=== PATIENT | female | born 1995 | race Caucasian/White ===

== ENCOUNTER 2023-08-07 03:36 | Observation (INO) | payer OTHER ==
[2023-08-07] MEDS ORDERED: ONDANSETRON 4 MG/2 ML VIAL ONE (03:52)
[2023-08-07] MEDS: ONDANSETRON 4 MG/2 ML VIAL IVPB ONE (04:06)
[2023-08-07] MEDS: SODIUM CHLORIDE 1,000 ML IV ONE ×2 (04:06→05:22)
[2023-08-07 04:19] VITALS: BMI 25.0
[2023-08-07] MEDS ORDERED: PANTOPRAZOLE SODIUM 40 MG VIAL ONE (04:30)
[2023-08-07] MEDS: PANTOPRAZOLE SODIUM 40 MG VIAL IVPB ONE (04:34)
[2023-08-07 05:41] LABS: HEMATOCRIT 43.5 % (32.4-45.2); HEMOGLOBIN 14.4 GM/dL (10.7-15.3); MCH 30.6 pg (25.7-33.7); MCHC 33.2 g/dl (32.0-36.0); MEAN CELL VOLUME 92.3 fl (80-96); MEAN PLT VOLUME 8.6 fl (7.5-11.1); PLATELET COUNT 234 10^3/uL (134-434); RBC 4.71 M/mm3 (3.60-5.2); RDW 13.1 % (11.6-15.6); WHITE BLOOD COUNT 13.2 K/mm3 (4.0-10.0)
[2023-08-07 05:47] LABS: POTASSIUM 4.2 mmol/L (3.5-5.1)
[2023-08-07 05:49] LABS: CALCIUM 8.4 mg/dL (8.5-10.1)
[2023-08-07 05:50] LABS: ALBUMIN 3.8 g/dl (3.4-5.0); BLOOD UREA NITROGEN 10.9 mg/dL (7-18); MAGNESIUM 1.9 mg/dL (1.8-2.4)
[2023-08-07 05:53] LABS: CREATININE 0.6 mg/dL (0.55-1.3); PHOSPHOROUS 2.9 mg/dL (2.5-4.9)
[2023-08-07 05:55] LABS: BILIRUBIN,TOTAL 0.3 mg/dL (0.2-1); TOT PROT 7.5 g/dl (6.4-8.2)
[2023-08-07] MEDS: PANTOPRAZOLE SODIUM 40 MG VIAL IVPUSH ONE (06:55)
[2023-08-07] MEDS ORDERED: ONDANSETRON 4 MG/2 ML VIAL IVPUSH PRN (07:38)
[2023-08-07] MEDS: LACTATED RINGERS SOLUTION 1,000 ML/1,000 ML INFUS.BAG IV SCH (07:47)
[2023-08-07 08:18] LABS: HEMATOCRIT 35.3 % (32.4-45.2); HEMOGLOBIN 12.1 GM/dL (10.7-15.3); MCH 31.3 pg (25.7-33.7); MCHC 34.2 g/dl (32.0-36.0); MEAN CELL VOLUME 91.6 fl (80-96); MEAN PLT VOLUME 8.5 fl (7.5-11.1); PLATELET COUNT 189 10^3/uL (134-434); RBC 3.85 M/mm3 (3.60-5.2); RDW 13.2 % (11.6-15.6)
[2023-08-07] MEDS: ACETAMINOPHEN 1000 MG/100 ML BAG IVPB PRN (16:30)
[2023-08-07] MEDS: ESCITALOPRAM OXALATE 10 MG TABLET PO SCH (16:30)
[2023-08-07 20:55] VITALS: RESP 18
[2023-08-07] MEDS: PANTOPRAZOLE SODIUM 40 MG VIAL IVPUSH SCH (21:03)
[2023-08-07] MEDS: traZODone HCL 50 MG TABLET (FP) PO SCH (21:38)
[2023-08-08 07:57] LABS: HEMATOCRIT 36.7 % (32.4-45.2); HEMOGLOBIN 11.9 G/dL (10.7-15.3); MCH 30.3 pg (25.7-33.7); MCHC 32.4 g/dl (32.0-36.0); MEAN CELL VOLUME 93.4 fl (80-96); MEAN PLT VOLUME 8.5 fl (7.5-11.1); RBC 3.93 10^6/uL (3.60-5.2); RDW 13.1 % (11.6-15.6); WHITE BLOOD COUNT 5.3 10^3/uL (4.0-10.8)
[2023-08-08 09:03] LABS: ALBUMIN 3.4 g/dl (3.4-5.0); BILIRUBIN,TOTAL 0.6 mg/dl (0.2-1); CALCIUM 8.1 mg/dl (8.5-10.1); CREATININE 0.6 mg/dl (0.6-1.3); MAGNESIUM 1.8 mg/dL (1.8-2.4); PHOSPHOROUS 2.3 (2.5-4.9); POTASSIUM 4.1 mmol/L (3.5-5.1); TOT PROT 5.3 g/dl (6.4-8.2)
[2023-08-08 11:18] VITALS: BP 119/70; PULSE 80; TEMP 98.5
[2023-08-08] MEDS: NAPH,MB-DB/K PH,MBDB POWDER PACKET PO ONE (11:36)
== END 2023-08-08 16:28 | disposition home or self-care (01) ==
LOC: FER 03:36 → FM/S 06:39
PROVIDERS: ADMIT Internal Medicine; ATTEND Internal Medicine
PROC: 3E033NZ Introduction of Analgesics, Hypnotics, Sedatives into Peripheral Vein, Percutaneous Approach (ICD-10-PCS; principal; 2023-08-07)
PROC: 3E0337Z Introduction of Electrolytic and Water Balance Substance into Peripheral Vein, Percutaneous Approach (ICD-10-PCS; 2023-08-07)
PROC: 3E033GC Introduction of Other Therapeutic Substance into Peripheral Vein, Percutaneous Approach (ICD-10-PCS; 2023-08-07)
DX: K52.9 Noninfective gastroenteritis and colitis, unspecified (principal); K92.0 Hematemesis; E27.9 Disorder of adrenal gland, unspecified; K59.00 Constipation, unspecified
CPT/HCPCS: 36415; 74177-TC; 80053; 83735; 84100; 84703; 85027; 86850; 86900; 86901; 93005; 96361; 96374; 96375; 96376; 99285-25; G0378; J0131; Q9967